=== PATIENT | female | born 1970 | race Caucasian/White ===

== ENCOUNTER → 2016-08-15 | Outpatient (CLI) | payer MEDICAID | LOC: WI 11:49 | PROVIDERS: ATTEND Family Medicine | DX: Z12.31 Encounter for screening mammogram for malignant neoplasm of breast (principal) | CPT/HCPCS: 77067; G0202 ==

== ENCOUNTER → 2016-08-19 | Outpatient (CLI) | payer MEDICAID ==
[2016-08-19 13:50] LABS: ABSOLUTE BASOPHILS # (AUTO) 0.1 10^3/uL (0.0-0.2); ABSOLUTE EOSINOPHILS # (AUTO) 0.2 10^3/uL (0.0-0.6); ABSOLUTE LYMPHOCYTES (AUTO) 2.5 10^3/uL (0.5-4.7); ABSOLUTE MONOCYTES (AUTO) 0.5 10^3/uL (0.1-1.4); ABSOLUTE NEUT (AUTO) 5.3 10^3/uL (1.7-8.2); BASOPHILS % (AUTO) 0.7 % (0-2); EOSINOPHILS % (AUTO) 2.2 % (0-6); HEMATOCRIT 43.8 % (36.0-47.0); HEMOGLOBIN 14.9 g/dL (12.0-15.5); HGB HCT DIFFERENCE 0.9; LYMPHOCYTES % (AUTO) 29.4 % (13-45); MEAN CORPUSCULAR HGB CONC 34.1 g/dL (32.0-36.0); MEAN CORPUSCULAR VOLUME 88 fl (80-97); MONOCYTES % (AUTO) 6.2 % (3-13); RED BLOOD COUNT 4.97 10^6/uL (3.72-5.28); RED CELL DISTRIBUTION WIDTH 12.7 % (11.5-14.0); SEGMENTED NEUTROPHILS % (AUTO) 61.5 % (42-78); WHITE BLOOD COUNT 8.6 10^3/uL (4.0-10.5)
== END ==
LOC: LAB 13:41
PROVIDERS: ATTEND Emergency Medicine
DX: R05 Cough (principal); R06.02 Shortness of breath; Z87.01 Personal history of pneumonia (recurrent)
CPT/HCPCS: 36415; 71020; 85025

== ENCOUNTER 2017-02-01 14:30 | Emergency (ER) | payer MEDICAID ==
--- NOTE | 2017-02-01 15:11 | ER Document Report ---
ED Medical Screen (RME) - General Chief Complaint: Chest Pain > 30 Stated Complaint: CHEST PAIN Time Seen by Provider: 02/01/17 15:09 Notes: Patient reports 3 days of increasing chest pain that radiates the left arm. She denies any previous history of coronary artery disease. No previous cardiac evaluations. She states she does use tobacco and does have diabetes and high cholesterol. She also states in the past she had a colon rupture from diverticulitis and then had a colostomy bag placed. 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 She also has been short of breath lately but has had no URI symptoms. TRAVEL OUTSIDE OF THE [place] IN LAST 30 DAYS: No - Related Data Allergies/Adverse Reactions: latex [Latex] Allergy (Verified 02/01/17 14:57) Sulfa (Sulfonamide Antibiotics) Allergy (Verified 02/01/17 14:57) Past Medical History - Social History Frequency of alcohol use: None Drug Abuse: None - Past Medical History Cardiac Medical History: Reports: Hx Hypercholesterolemia, Hx Hypertension Denies: Hx Atrial Fibrillation, Hx Coronary Artery Disease Pulmonary Medical History: Denies: Hx Asthma Endocrine Medical History: Reports: Hx Diabetes Mellitus Type 2 Renal/ Medical History: Denies: Hx Peritoneal Dialysis GI Medical History: Reports: Hx Diverticulitis - Resulting in colectomy with colostomy in 2011.. Denies: Hx Gastroesophageal Reflux Disease Musculoskeltal Medical History: Reports Hx Fibromyalgia Psychiatric Medical History: Reports: Hx Depression, Hx Obsessive Compulsive Disorder Past Surgical History: Reports: Hx Bowel Surgery - colectomy with colostomy, Hx Section, Hx Colostomy, Hx Hysterectomy - Immunizations Hx Diphtheria, Pertussis, Tetanus Vaccination: Yes Physical Exam - Vital signs Vitals: Temp Pulse Resp BP Pulse Ox 98.3 F 95 20 128/76 H 97 02/01/17 14:59 02/01/17 14:59 02/01/17 14:59 02/01/17 14:59 02/01/17 14:59 Course - Vital Signs Vital signs: Temp Pulse Resp BP Pulse Ox 98.3 F 95 20 128/76 H 97 02/01/17 14:59 02/01/17 14:59 02/01/17 14:59 02/01/17 14:59 02/01/17 14:59
[2017-02-01 15:53] LABS: ABSOLUTE EOSINOPHILS # (AUTO) 0.1 10^3/uL (0.0-0.6); ABSOLUTE LYMPHOCYTES (AUTO) 2.1 10^3/uL (0.5-4.7); ABSOLUTE MONOCYTES (AUTO) 0.5 10^3/uL (0.1-1.4); ABSOLUTE NEUT (AUTO) 4.8 10^3/uL (1.7-8.2); BASOPHILS % (AUTO) 0.1 % (0-2); EOSINOPHILS % (AUTO) 0.8 % (0-6); HEMATOCRIT 43.5 % (36.0-47.0); HEMOGLOBIN 14.4 g/dL (12.0-15.5); HGB HCT DIFFERENCE -0.3; LYMPHOCYTES % (AUTO) 28.2 % (13-45); MEAN CORPUSCULAR HEMOGLOBIN 30.2 pg (27.0-33.4); MEAN CORPUSCULAR VOLUME 92 fl (80-97); MONOCYTES % (AUTO) 6.8 % (3-13); RED BLOOD COUNT 4.75 10^6/uL (3.72-5.28); RED CELL DISTRIBUTION WIDTH 13.8 % (11.5-14.0); SEGMENTED NEUTROPHILS % (AUTO) 64.1 % (42-78); WHITE BLOOD COUNT 7.5 10^3/uL (4.0-10.5)
[2017-02-01 16:08] LABS: APPEARANCE,URINE SLIGHTLY-CLOUDY; BILIRUBIN,URINE NEGATIVE (NEGATIVE); GLUCOSE, URINE >=500 mg/dL (NEGATIVE); KETONES,URINE NEGATIVE (NEGATIVE); LEUKOCYTE ESTERASE,URINE NEGATIVE (NEGATIVE); NITRITE,URINE NEGATIVE (NEGATIVE); PROTEIN,URINE NEGATIVE (NEGATIVE); UROBILINOGEN,URINE NEGATIVE mg/dL (<2.0)
[2017-02-01 16:14] LABS: ALANINE AMINOTRANSFERASE 76 U/L (9-52); ALBUMIN 4.2 g/dL (3.5-5.0); ALKALINE PHOSPHATASE 141 U/L (38-126); ANION GAP 14 (5-19); ASPARTATE AMINO TRANSFERASE 90 U/L (14-36); BILIRUBIN,DIRECT 0.5 mg/dL (0.0-0.4); BILIRUBIN,TOTAL 0.6 mg/dL (0.2-1.3); BLOOD UREA NITROGEN 12 mg/dL (7-20); CALCIUM 10.2 mg/dL (8.4-10.2); CARBON DIOXIDE 29 mmol/L (22-30); CHLORIDE 101 mmol/L (98-107); CREATININE RESULT 0.65 mg/dL (0.52-1.25); GLUCOSE 262 mg/dL (75-110); SODIUM 143.5 mmol/L (137-145); TOTAL PROTEIN 6.7 g/dL (6.3-8.2)
--- NOTE | 2017-02-01 16:37 | ER Document Report ---
ED General <JOSESHOBHA - Last Filed: 02/01/17 16:37> - General Mode of Arrival: Ambulatory Information source: Patient TRAVEL OUTSIDE OF THE [place] IN LAST 30 DAYS: No <LEANA CORONA - Last Filed: 02/01/17 16:50> - General Chief Complaint: Chest Pain > 30 Stated Complaint: CHEST PAIN Time Seen by Provider: 02/01/17 15:09 Notes: Patient is a 46-year-old female who presents to the emergency department today with complaints of reproducible chest pain and tightness. Patient states that she had a few short lasting pains over the weekend and they seemed to subside. Patient states that a few days after that she decided it would be a good idea to begin exercising. Patient states she began walking and noticed that her pain has gotten worse since beginning this new activity. Patient states her pain is exacerbated with deep breathing and coughing. Patient describes the pain as a "burning" feeling. Patient also mentions generalized weakness. Patient denies a history of coronary artery disease or a family history of coronary artery disease. (LEANA CORONA) - Related Data Allergies/Adverse Reactions: latex [Latex] Allergy (Verified 02/01/17 14:57) Sulfa (Sulfonamide Antibiotics) Allergy (Verified 02/01/17 14:57) Past Medical History - General Information source: Patient - Social History Smoking Status: Current Every Day Smoker Cigarette use (# per day): Yes Frequency of alcohol use: None Drug Abuse: None Lives with: Family Family History: Reviewed & Not Pertinent Patient has suicidal ideation: No Patient has homicidal ideation: No - Past Medical History Cardiac Medical History: Reports: Hx Hypercholesterolemia, Hx Hypertension Endocrine Medical History: Reports: Hx Diabetes Mellitus Type 2 GI Medical History: Reports: Hx Diverticulitis - Resulting in colectomy with colostomy in 2011. Musculoskeltal Medical History: Reports Hx Fibromyalgia Psychiatric Medical History: Reports: Hx Depression, Hx Obsessive Compulsive Disorder Past Surgical History: Reports: Hx Bowel Surgery - colectomy with colostomy, Hx Section, Hx Colostomy, Hx Hysterectomy - Immunizations Hx Diphtheria, Pertussis, Tetanus Vaccination: Yes <LEANA CORONA - Last Filed: 02/01/17 16:50> Review of Systems - Review of Systems Constitutional: See HPI, Weakness - generalized EENT: No symptoms reported Cardiovascular: See HPI, Chest pain - reproducible Respiratory: See HPI, Short of breath Gastrointestinal: No symptoms reported Genitourinary: No symptoms reported Female Genitourinary: No symptoms reported Musculoskeletal: No symptoms reported Skin: No symptoms reported Hematologic/Lymphatic: No symptoms reported Neurological/Psychological: No symptoms reported -: Yes All other systems reviewed and negative <LEANA CORONA - Last Filed: 02/01/17 16:50> Physical Exam - Vital signs Interpretation: Normal - General General appearance: Appears well, Alert - HEENT Head: Normocephalic, Atraumatic Eyes: Normal Pupils: PERRL - Respiratory Respiratory status: No respiratory distress Chest status: Tender - bilateral anterior chest wall tenderness with palpation, left much greater than right. Breath sounds: Normal Chest palpation: Normal - Cardiovascular Rhythm: Regular Heart sounds: Normal auscultation Murmur: No - Abdominal Inspection: Obese Distension: No distension Bowel sounds: Normal Tenderness: Nontender Organomegaly: No organomegaly - Back Back: Normal, Nontender - Extremities General upper extremity: Normal inspection, Normal strength. No: Edema General lower extremity: Normal inspection, Normal strength. No: Edema - Neurological Neuro grossly intact: Yes Cognition: Normal Orientation: AAOx4 Heather Coma Scale Eye Opening: Spontaneous [place] Coma Scale Verbal: Oriented Heather Coma Scale Motor: Obeys Commands Heather Coma Scale Total: 15 Speech: Normal - Psychological Associated symptoms: Normal affect, Normal mood - Skin Skin Temperature: Warm Skin Moisture: Dry Skin Color: Normal <LEANA CORONA - Last Filed: 02/01/17 16:50> - Vital signs Vitals: Temp Pulse Resp BP Pulse Ox 98.3 F 95 20 128/76 H 97 02/01/17 14:59 02/01/17 14:59 02/01/17 14:59 02/01/17 14:59 02/01/17 14:59 Course - Laboratory Result Diagrams: 02/01/17 15:30 02/01/17 15:30 - Diagnostic Test Radiology reviewed: Image reviewed - Chest x-ray is unremarkable. - EKG Interpretation by Sc EKG shows normal: Sinus rhythm, [place], Intervals, QRS Complexes, ST-T Waves Rate: Normal - 97 Rhythm: NSR When compared to previous EKG there are: No significant change <SHOBHA GARCIA - Last Filed: 02/01/17 16:37> - Laboratory Result Diagrams: 02/01/17 15:30 02/01/17 15:30 <LEANA CORONA - Last Filed: 02/01/17 16:50> - Re-evaluation Re-evalutation: 02/01/17 16:39 Patient's troponins are undetectable. EKG does not show an acute process. Chest x-ray is unremarkable. Chest pain is reproducible with palpation, deep breath or cough. (SHOBHA GARCIA) - Vital Signs Vital signs: Temp Pulse Resp BP Pulse Ox 98.3 F 95 20 128/76 H 97 02/01/17 14:59 02/01/17 14:59 02/01/17 14:59 02/01/17 14:59 02/01/17 14:59 - Laboratory Laboratory results interpreted by me: 02/01/17 02/01/17 02/01/17 15:20 15:30 15:30 Plt Count 135 L Glucose 262 H Direct Bilirubin 0.5 H AST 90 H ALT 76 H Alkaline Phosphatase 141 H Urine Glucose (UA) >=500 H Discharge <SHOBHA GARCIA - Last Filed: 02/01/17 16:37> <LEANA CORONA - Last Filed: 02/01/17 16:50> - Discharge Clinical Impression: Chest wall pain, Poorly controlled diabetes mellitus Condition: Stable Disposition: HOME, SELF-CARE Additional Instructions: Chest Wall Pain: Your chest pain has been diagnosed as coming from the chest wall. This is often caused by straining the muscles or joints in the chest during physical activity, direct trauma, coughing, or vigorous vomiting. Persons with arthritis are especially prone to this type of pain, due to inflammation of the cartilage joints near the breast bone. Occasionally, no cause can be found. Rest from strenuous physical activity. This kind of chest pain is usually made worse by movement of the chest. Depending on the symptoms, we may prescribe medicine for pain, muscle relaxation, and antiinflammatory effects. If the pain is new, and seems to be due to muscle strain, cold packs can help. Otherwise, apply gentle warmth to the painful area for 15 minutes every hour or two. You should contact the doctor immediately if things change. Further evaluation is needed if you develop a fever or cough, if the nature of the pain changes, or if you become short of breath. Continue your regular medications. Try moist heat to the painful chest wall areas. Check your sugars regularly and report the results to your primary care provider. RETURN TO THE EMERGENCY ROOM IF ANY NEW OR WORSENING SYMPTOMS. Andrewibe Attestation: 02/01/17 16:39 I personally performed the services described in the documentation, reviewed and edited the documentation which was dictated to the scribe in my presence, and it accurately records my words and actions. (SHOBHA GARCIA) Scribe Documentation - Scribe Written by Kaya:: Kaya Stein, 02/01/2017 [id number] acting as scribe for :: Jose <LEANA CORONA - Last Filed: 02/01/17 16:50>
--- NOTE | 2017-02-01 16:49 | RADIOLOGY REPORT (SQ) ---
EXAM DESCRIPTION: CHEST PA/LAT COMPLETED DATE/TIME: 02/01/2017 4:07 pm REASON FOR STUDY: pain COMPARISON: Chest films 08/19/2016 02/02/2014 EXAM PARAMETERS: NUMBER OF VIEWS: two views TECHNIQUE: Digital Frontal and Lateral radiographic views of the chest acquired. RADIATION DOSE: NA LIMITATIONS: none FINDINGS: LUNGS AND PLEURA: No opacities, masses or pneumothorax. No pleural effusion. MEDIASTINUM AND HILAR STRUCTURES: No masses or contour abnormalities. HEART AND VASCULAR STRUCTURES: Heart normal size. No evidence for failure. BONES: No acute findings. HARDWARE: None in the chest. OTHER: No other significant finding. IMPRESSION: NO SIGNIFICANT RADIOGRAPHIC FINDING IN THE CHEST. TECHNICAL DOCUMENTATION: JOB ID: [id number] [employer]- All Rights Reserved
[2017-02-01 17:08] VITALS: BP 116/67
--- NOTE | 2017-02-01 18:55 | EKG REPORT ---
SEVERITY:- ABNORMAL ECG - SINUS RHYTHM PROBABLE INFEROLATERAL INFARCT, AGE INDETERM BORDERLINE PROLONGED QT INTERVAL : Confirmed by: Christian Aaron MD 01-Feb-2017 18:55:02
== END 2017-02-01 17:10 | disposition home or self-care (01) ==
LOC: ER 14:30
DX: R07.89 Other chest pain (principal); E11.9 Type 2 diabetes mellitus without complications; F17.210 Nicotine dependence, cigarettes, uncomplicated
CPT/HCPCS: 36415; 71020; 80053; 81001; 81025; 83036; 84484; 85025; 93005; 93010; 99285

== ENCOUNTER → 2018-09-04 | Outpatient (CLI) | payer MEDICAID, OTHER ==
--- NOTE | 2018-09-04 14:18 | WOMENS IMAGING REPORT ---
EXAM DESCRIPTION: BILAT SCREENING MAMMO W/CAD COMPLETED DATE/TIME: 09/04/2018 1:35 pm REASON FOR STUDY: Z12.31 ROUTINE BILATERAL SCREENING Z12.31 ENCNTR SCREEN MAMMOGRAM FOR MALIGNANT N EOPLASM OF MELODIE COMPARISON: 08/31/2017 and 08/15/2016. TECHNIQUE: Standard craniocaudal and mediolateral oblique views of each breast recorded using digita l acquisition. LIMITATIONS: None. FINDINGS: Findings present which are benign by mammographic criteria. No suspicious masses, calcifi cations or architectural distortion. Pertinent benign findings: Stable small nodules and benign calcifications. Read with the assistance of CAD. .[facility] - R2 [employer] Version 1.3 .[facility] - R2 [employer] Version 2.1 .[facility] - R2 [employer] Version 2.4 .[facility] [place] R2 [employer] Version 2.4 .[facility] - R2 [employer] Version 9.2 Benign mammographic findings may include one or more of the following: Smooth masses, popcorn/rim/co arse calcifications, asymmetries, post-procedure changes, and lesions with long-standing stability. IMPRESSION: BENIGN MAMMOGRAPHIC FINDINGS. BIRADS 2 BREAST DENSITY: b. There are scattered areas of fibroglandular density. BIRAD: 2 BENIGN FINDING(S) RECOMMENDATION: ROUTINE SCREENING COMMENT: The patient has been notified of the results by letter per [place] requirements. Additional no tification policies are in place for contacting patient with suspicious or incomplete findings. Quality ID #225: The [employer] recommends an annual screening mammogram for women aged 40 years or over. This facility utilizes a reminder system to ensure that all patients receive reminder letters, and/or direct phone calls for appointments. This includes reminders for routine scr eening mammograms, diagnostic mammograms, or other Breast Imaging Interventions when appropriate. Th is patient will be placed in the appropriate reminder system. The [employer] (ACR) has developed recommendations for screening MRI of the breast s in certain patient populations, to be used in conjunction with mammography. Breast MRI surveillanc e may be appropriate for women with more than 20% lifetime risk of developing breast cancer as deter mined by genetic testing, significant family history of the disease, or history of mantle radiation f or Hodgkins Disease. ACR Practice Guidelines 2008. TECHNICAL DOCUMENTATION: FINDING NUMBER: (1) ASSESSMENT: (1) JOB ID: [id number] [employer]- All Rights Reserved Reading location - IP/workstation name: [email or web address]
== END ==
LOC: WI 13:18
PROVIDERS: ATTEND Family Medicine
DX: Z12.31 Encounter for screening mammogram for malignant neoplasm of breast (principal)
CPT/HCPCS: 77067

== ENCOUNTER → 2018-09-18 | Outpatient (CLI) | payer MEDICAID | LOC: OD 15:49 | PROVIDERS: ATTEND Nurse Practitioner Family | DX: L02.235 Carbuncle of perineum (principal); L02.91 Cutaneous abscess, unspecified | CPT/HCPCS: 87070; 87077; 87186; 87205 ==

== ENCOUNTER → 2019-12-04 | Outpatient (CLI) | payer BC ==
--- NOTE | 2019-12-05 09:17 | WOMENS IMAGING REPORT ---
EXAM DESCRIPTION: 3D SCREENING MAMMO BILAT IMAGES COMPLETED DATE/TIME: 12/05/2019 6:27 am REASON FOR STUDY: Z12.31 ENCOUNTER FOR SCREENING MAMMOGRAM FOR MALIGNANT NEOPLASM OF BREAST Z12.31 ENCNTR SCREEN MAMMOGRAM FOR MALIGNANT NEOPLASM OF MELODIE COMPARISON: 2018 and 2019. EXAM PARAMETERS: Standard craniocaudal and mediolateral oblique views of each breast recorded using digital acquisition. Read with the assistance of CAD. .[facility] - [employer] Version 9.2 LIMITATIONS: None. FINDINGS: No suspicious masses, suspicious calcifications or architectural distortion. No areas of c oncern. IMPRESSION: NEGATIVE MAMMOGRAM. BIRADS 1 BREAST DENSITY: b. There are scattered areas of fibroglandular density. BIRAD: ASSESSMENT: 1 NEGATIVE RECOMMENDATION: ROUTINE SCREENING COMMENT: The patient has been notified of the results by letter per MQSA requirements. Additional no tification policies are in place for contacting patient with suspicious or incomplete findings. Quality ID #[id number]: The [employer] recommends an annual screening mammogram for women aged 40 years or over. This facility utilizes a reminder system to ensure that all patients receive reminder letters, and/or direct phone calls for appointments. This includes reminders for routine scr eening mammograms, diagnostic mammograms, or other Breast Imaging Interventions when appropriate. Th is patient will be placed in the appropriate reminder system. TECHNICAL DOCUMENTATION: FINDING NUMBER: (1) ASSESSMENT: (1) JOB ID: [id number] [employer]- All Rights Reserved Reading location - IP/workstation name: [email or web address]
== END ==
LOC: WI 13:43
PROVIDERS: ATTEND Family Medicine
DX: Z12.31 Encounter for screening mammogram for malignant neoplasm of breast (principal)
CPT/HCPCS: 77063; 77067